=== PATIENT | male | born 1955 | race Caucasian/White ===

== ENCOUNTER 2019-02-25 15:17 | Outpatient (CLI) | payer BC ==
[~2019-02-25] VITALS: Ht 175.3 cm; Wt 80.3 kg
[~2019-02-25 15:17] MED LIST: LOVA40TA2 PO; MECL-124 PO; NEBI5TAB8 PO; ONDA-42 SL; PROM25SU10 PR; SCOP1PAT TD
== END 2019-02-25 15:41 | disposition home or self-care (01) ==
LOC: PREOP 15:17
PROVIDERS: ATTEND Surgery
DX: Z01.818 Encounter for other preprocedural examination (principal)

== ENCOUNTER 2019-03-02 09:02 | Day surgery (SDC) | payer BC ==
[~2019-03-02] VITALS: Ht 175.3 cm; Wt 80.3 kg
--- OUTSIDE RECORDS SUMMARY | 2019-03-02 09:05 | XMS REPORT ---
Author ROMINA Pathak [facility] eClinicalWorks Address Unknown Phone Unavailable Care Team Providers Care Backend Developer Name Role Phone ROMINA EKNYON CP Unavailable Allergies No Known Allergies Problems Problem Type Condition Code Onset Dates Condition Status Assessment Encounter for immunization Z23 Active Medications No Known Medications Procedures Procedure Coding System Code Date SINGLE IMMUNIZATION ADMIN CPT-4 94352 Aug 18, 2015 ZOSTER (ZOSTAVAX) CPT-4 10420 Aug 18, 2015 Results No Known Results Immunizations Vaccine Administration Date ZOSTER (ZOSTAVAX) Aug 18, 2015 Summary Purpose eClinicalWorks Submission
--- OUTSIDE RECORDS SUMMARY | 2019-03-02 09:05 | XMS REPORT | Continuity of Care Document ---
Author Organization Unknown Address Unknown Allergies There is no data. Medications There is no data. Problems There is no data. Procedures There is no data. Results There is no data. Encounters ACCT No. Visit Date/Time Discharge Status Pt. Type Provider Facility Loc./Unit Complaint [id number] 02/02/2014 07:13:00 02/02/2014 08:20:00 [facility] Emergency [id number] 01/31/2014 06:00:00 01/31/2014 08:44:00 DIS Emergency
[2019-03-02 09:10] VITALS: BP 148/96
[2019-03-02] MEDS ORDERED: LACTATED RINGERS 1,000 ML IV STA (09:11)
[2019-03-02] MEDS ORDERED: LACTATED RINGERS 1,000 ML IV ONE (09:22)
[2019-03-02] MEDS ORDERED: proPOfol 200 MG/20 ML (DIPRIVAN) VIAL IV ONE ×3 (09:43→10:39)
[2019-03-02] MEDS ORDERED: MIDAZOLAM 2 MG/2 ML (VERSED) VIAL ONE (09:44)
[2019-03-02] MEDS ORDERED: FISH1CAP15 PO (09:57)
--- NOTE | 2019-03-02 09:59 | Progress Note-Pre Operative ---
Pre-Operative Progress Note H&P Reviewed The H&P was reviewed, patient examined and no changes noted. Date Seen by Provider: March 02, 2019 Time Seen by Provider: 09:58 Date H&P Reviewed: March 02, 2019 Time H&P Reviewed: 09:59 Pre-Operative Diagnosis: screening colonoscopy FRANK MALIK DO March 02, 2019 09:59
[2019-03-02] MEDS ORDERED: GLYCOPYRROLATE 0.2 MG/ML (ROBINUL) 2 ML VIAL ONE (10:26)
[2019-03-02] MEDS ORDERED: ONDANSETRON 4 MG/2 ML (SDV) Z0FRAN ONE (11:01)
--- NOTE | 2019-03-02 11:22 | Progress Note-Post Operative ---
Post-Operative Progess Note Surgeon (s)/Chief Relay Tester (s) Surgeon FRANK MALIK DO Chief Relay Tester: na Pre-Operative Diagnosis screening colonoscopy Post-Operative Diagnosis colon polyps Procedure & Operative Findings Date of Procedure 03/02/19 Procedure Performed/Findings colonoscopy and snare polypectomy x 2 and hot bx polypectomy x3 Anesthesia Type per supervisor instant potato processing Estimated Blood Loss Estimated blood loss (mL): scant Specimens/Packing Specimens Removed cecal, ascending, transverse colon polyp hepatic flexurex 2 and splenic flexure FRANK MALIK DO March 02, 2019 11:22
--- NOTE | 2019-03-02 11:24 | Discharge Inst-Simple/Standard ---
Discharge Inst-Standard Discharge Medications New, Converted or Re-Newed RX: RX on Chart Patient Instructions/Follow Up Plan of Care/Instructions/FU: 2 weeks [place] Activity as Tolerated: Yes Discharge Diet: Regular Diet FRANK MALIK DO March 02, 2019 11:24
[2019-03-02 11:30] VITALS: BP 147/71
[2019-03-02 12:00] VITALS: BP 141/78
--- NOTE | 2019-03-02 12:12 | Anesthesia-General Post-Op ---
MAC Patient Condition Mental Status/LOC: Same as Preop Cardiovascular: Satisfactory Nausea/Vomiting: Absent Respiratory: Satisfactory Pain: Controlled Complications: Absent Post Op Complications Complications None Follow Up Care/Instructions Patient Instructions None needed. Anesthesiology Discharge Order Discharge Order Patient is doing well, no complaints, stable vital signs, no apparent adverse anesthesia problems. No complications reported per nursing. CHEY UPTON CRNA March 02, 2019 12:12
[2019-03-02 12:30] VITALS: BP 162/89
[2019-03-02 12:40] VITALS: BP 162/89
--- NOTE | 2019-03-02 12:40 | NUR ---
TAKING PO FLUIDS WITHOUT PROBLEM. HAS BEEN UP TO BR, VOIDED AND REPORTS PASSING SOME FLATUS. GAIT STEADY. STATES HE IS READY FOR DISMISSAL. CONTINUES TO C/O IRRITATED "SORE THROAT". HAS BEEN TAKING ICE CHIPS TO HELP ALLEVIATE DISCOMFORT.
--- NOTE | 2019-03-02 18:32 | OPERATIVE REPORT ---
DATE OF SERVICE: 03/02/2019 PREOPERATIVE DIAGNOSIS: Screening colonoscopy. POSTOPERATIVE DIAGNOSIS: Colon polyps. PROCEDURES PERFORMED: Colonoscopy with snare polypectomy x2 and hot biopsy polypectomy x3. SURGEON: Frank Duggan DO. ANESTHESIA: Per MAIL LIST PROCESSOR. ESTIMATED BLOOD LOSS: Scant. COMPLICATIONS: None. INDICATIONS: The patient is a 63-year-old male with a need for screening colonoscopy. He understands risks and benefits of procedure and wished to proceed with procedure. Consent was signed in the chart. DESCRIPTION OF PROCEDURE: The patient was taken to the endoscopy suite, placed in left lateral recumbent position. Timeout was performed. Digital rectal exam was performed. There were no palpable polyps, masses or ulcerations. Scope was inserted in the rectum and advanced all the way to the cecum with minimal difficulty. Prep was adequate. Within the cecum, large polyp was present, which snare polypectomy was performed with fulguration. The polyp had to be transected a couple of times with the snare in order to have it suctioned for specimen to be obtained. Scope was then slowly retracted back into the ascending colon, another large polyp, which snare polypectomy was performed on larger polyp which had to be transected with the snare in order have it obtained through the suction canister. Scope was then continuously retracted back. At the transverse colon near the hepatic flexure, 2 polyps were present, which hot biopsy polypectomies were performed. Scope was continuously retracted back. Near the splenic flexure, another small polyp was present, which hot biopsy polypectomy was performed. Scope was continuously retracted back. No polyps, masses or ulcerations in the descending colon, sigmoid colon and in the rectum. Once in the rectum, scope was also retroflexed noting no other pathology. Scope was returned to its normal position, slowly withdrawn until completely removed. The patient tolerated procedure well without any complications and taken to recovery room in stable condition. RECOMMENDATIONS: Due to the large polyps and number of polyps, we would recommend repeat colonoscopy in 6 months for reevaluation. If he has any issues before that will be seen at that time. The patient will follow up in 2 weeks to discuss pathology results and findings. Job ID: [id number] DocumentID: [id number] Dictated Date: 03/02/2019 11:26:53 Forest Fire Fighter Date: 03/02/2019 18:31:37 Dictated By: FRANK DUGGAN DO
== END 2019-03-02 12:40 | disposition home or self-care (01) ==
LOC: ENDO 09:02
PROVIDERS: ATTEND Surgery
DX: Z12.11 Encounter for screening for malignant neoplasm of colon (principal); D12.0 Benign neoplasm of cecum; D12.2 Benign neoplasm of ascending colon; D12.3 Benign neoplasm of transverse colon; I10 Essential (primary) hypertension; Z79.899 Other long term (current) drug therapy